=== PATIENT | female | born 1985 | race Two or more races ===

== ENCOUNTER 2019-02-19 00:31 | Emergency (ER) | payer OTHER ==
[~2019-02-19] VITALS: Ht 160 cm; Wt 158.8 kg
[~2019-02-19 00:31] MED LIST: NO HOME MEDICATIONS; SULF1TAB24 PO
[2019-02-19 00:35] VITALS: BP 147/89
[2019-02-19] MEDS ORDERED: HYDR-3164 PO (00:48)
[2019-02-19] MEDS ORDERED: KETOROLAC 30 MG/ML VIAL. IM ONE (01:00)
[2019-02-19] MEDS ORDERED: HYDROcodone/APAP 5/325MG 1 TAB TABLET PO ONE (01:00)
--- NOTE | 2019-02-19 02:07 | PHYS DOC ---
Past Medical History Past Medical History: No Pertinent History Past Surgical History: Appendectomy, Tubal ligation Alcohol Use: None Drug Use: None Adult General Chief Complaint Chief Complaint: BACK PAIN - NO INJURY HPI HPI Patient is a 33 year old female with back pain woke up this morning right side tried muscle relaxant only had a 2 mg dose and really help no other medicines no trauma no dysuria no cough no shortness of breath no chest pain just feeling this very tight muscle in the right mid back area last time she went to an emergency room for this was last year she went to [facility]. Patient has had no urinary incontinence no bowel incontinence symptoms are currently severe Review of Systems Review of Systems Constitutional: Denies fever or chills [] Eyes: Denies change in visual acuity, redness, or eye pain [] HENT: Denies nasal congestion or sore throat [] Respiratory: Denies cough or shortness of breath [] Musculoskeletal: Integument: Denies rash or skin lesions [] Neurologic: Denies headache, focal weakness or sensory changes [] Endocrine: Denies polyuria or polydipsia [] All other systems were reviewed and found to be within normal limits, except as documented in this note. Current Medications Current Medications Current Medications Medications (Trade) Dose Ordered Sig/Leandro Start Time Stop Time Status Last Admin Dose Admin Acetaminophen/ Hydrocodone Bitart (Lortab 5/325) 2 tab 1X ONCE 02/19/19 01:00 02/19/19 01:01 DC 02/19/19 00:57 2 TAB Ketorolac Tromethamine (Toradol 30mg Vial) 30 mg 1X ONCE 02/19/19 01:00 02/19/19 01:01 DC 02/19/19 00:57 30 MG Lorazepam (Ativan Inj) 2 mg 1X ONCE 02/19/19 01:00 02/19/19 01:01 DC 02/19/19 00:57 2 MG Allergies Allergies Allergies Coded Allergies Type Severity Reaction Last Updated Verified Penicillins Allergy Intermediate Rash 08/17/13 Yes Physical Exam Physical Exam Constitutional: Well developed, well nourished, no acute distress, non-toxic appearance. [] HENT: Normocephalic, atraumatic, bilateral external ears normal, oropharynx moist, no oral exudates, nose normal. [] Eyes: PERRLA, EOMI, conjunctiva normal, no discharge. [] Neck: Normal range of motion, no tenderness, supple, no stridor. [] Cardiovascular:Heart rate regular rhythm, no murmur [] Lungs & Thorax: Bilateral breath sounds clear to auscultation [] Abdomen: Bowel sounds normal, soft, no tenderness, no masses, no pulsatile masses. [] Skin: Warm, dry, no erythema, no rash. [] Back: There is tenderness to palpation paraspinous on the right reproduces her pain there is palpable spasm no focal midline tenderness. Extremities: No tenderness, no cyanosis, no clubbing, ROM intact, no edema. [] Neurologic: Alert and oriented X 3, normal motor function, normal sensory function, no focal deficits noted. [] Psychologic: Affect normal, judgement normal, mood normal. [] Current Patient Data Vital Signs Vital Signs Date Time Temp Pulse Resp B/P (MAP) Pulse Ox O2 Delivery O2 Flow Rate FiO2 02/19/19 00:57 18 02/19/19 00:35 97.6 88 147/89 (108) 98 Room Air 97.6 EKG EKG [] Radiology/Procedures Radiology/Procedures [] Course & Med Decision Making Course & Med Decision Making Pertinent Labs and Imaging studies reviewed. (See chart for details) []msk mid back pain palpable spasm pt feels better after toradol/ativan./norco Dragon Disclaimer Dragon Disclaimer This electronic medical record was generated, in whole or in part, using a voice recognition dictation system. Departure Departure Impression: Primary Impression: Back pain Disposition: 01 HOME, SELF-CARE Condition: STABLE Referrals: ALEXIS YOUNGBLOOD MD NO PCP (PCP) Patient Instructions: Back Pain, Adult, [id number] Scripts Hydrocodone/Apap 5-325 (NORCO 5-325 TABLET) 1 Each Tablet 1-2 EACH PO PRN Q6HRS PRN for PAIN, #10 as needed for pain Prov: KASI ALTAMIRANO MD 02/19/19 KAIS ALTAMIRANO MD Feb 19, 2019 02:07
== END 2019-02-19 01:20 | disposition home or self-care (01) ==
LOC: ER 00:31
DX: M54.6 Pain in thoracic spine (principal); Z90.89 Acquired absence of other organs; Z98.51 Tubal ligation status; Z88.0 Allergy status to penicillin
CPT/HCPCS: 96372; 99284; J1885; J2060

== ENCOUNTER 2019-04-30 09:17 | Emergency (ER) | payer OTHER ==
[~2019-04-30] VITALS: Ht 160 cm; Wt 125.2 kg
[~2019-04-30 09:17] MED LIST changes: +HYDR-3164 PO
[2019-04-30 09:28] VITALS: BP 129/88
[2019-04-30] MEDS ORDERED: CLIN150C14 PO (10:03)
[2019-04-30] MEDS ORDERED: NAPR-514 PO (10:03)
--- NOTE | 2019-04-30 10:03 | PHYS DOC ---
Past Medical History Past Medical History: No Pertinent History Past Surgical History: Appendectomy, Tubal ligation Alcohol Use: None Drug Use: None Adult General Chief Complaint Chief Complaint: FOOT INJURY PAIN HPI HPI Patient is a 34 year old female who presents to the emergency department with complaints of left foot redness, warmth, tenderness, and swelling for the last week. She denies any known injury. Currently she rates her pain 8 out of 10 on the pain scale, there are no alleviating, weightbearing and ambulation increases her pain. Patient states that she has been elevating the foot at home with no reduction of her swelling. ROS Patient denies any fever, cough, wheezing, shortness of breath, sore throat, or ear pain. She denies any nausea, vomiting, diarrhea, or abdominal pain. Patient denies any numbness, or tingling of the affected extremity. All other ROS is neg unless otherwise noted in HPI. Review of Systems Review of Systems See Above Allergies Allergies Allergies Coded Allergies Type Severity Reaction Last Updated Verified Penicillins Allergy Intermediate Rash 08/17/13 Yes sulfamethoxazole Allergy Intermediate Anxiety 04/30/19 Yes trimethoprim Allergy Intermediate Anxiety 04/30/19 Yes Physical Exam Physical Exam See Above Constitutional: Well developed, well nourished, no acute distress, non-toxic appearance, obese. [] HENT: Normocephalic, atraumatic, bilateral external ears normal, nose normal. [] Eyes: conjunctiva normal, no discharge. [] Neck: Normal range of motion, no stridor. [] Cardiovascular:Heart rate regular rhythm Lungs & Thorax: Respirations even and unlabored, no retractions, no respiratory distress Skin: Warm, dry; warmth, erythema, and 2+ edema noted to anterior portion of right foot, concerning for cellulitis. No bruising Extremities: No cyanosis, no clubbing, ROM intact Neurologic: Alert and oriented X 3, normal motor function, normal sensory function, no focal deficits noted. [] Psychologic: Affect normal, judgement normal, mood normal. [] Current Patient Data Vital Signs Vital Signs Date Time Temp Pulse Resp B/P (MAP) Pulse Ox O2 Delivery O2 Flow Rate FiO2 04/30/19 09:28 97.8 104 16 129/88 (102) 97 Room Air 97.8 EKG EKG [] Radiology/Procedures Radiology/Procedures [] Course & Med Decision Making Course & Med Decision Making Pertinent Labs and Imaging studies reviewed. (See chart for details) [] Shahrzad Disclaimer Dragon Disclaimer This electronic medical record was generated, in whole or in part, using a voice recognition dictation system. Departure Departure Impression: Primary Impression: Cellulitis of left foot excluding toes Disposition: 01 HOME, SELF-CARE Condition: STABLE Referrals: NO PCP (PCP) Patient Instructions: Cellulitis, [id number] Additional Instructions: Fill prescriptions and use it as directed. Recommend application of warm moist heat as needed for comfort. Recommend elevation of your left foot while you are resting. Follow-up with your primary care doctor in 2 days if symptoms persist, return to the ER if symptoms worsen. Take a probiotic or eat a yogurt daily while taking Clindamycin. Scripts Naproxen (NAPROXEN) 500 Mg Tablet 1 TAB PO BID for 10 Days, #20 TAB 0 Refills Prov: CAITLIN CLEMONS APRN 04/30/19 Clindamycin Hcl (CLINDAMYCIN HCL) 150 Mg Capsule 450 MG PO TID for 7 Days, #63 CAP 0 Refills Prov: ACITLIN CLEMONS COMMUNITY EDUCATOR 04/30/19 CAITLIN CLEMONS APRN Apr 30, 2019 10:03
== END 2019-04-30 10:22 | disposition home or self-care (01) ==
LOC: ER 09:17
DX: L03.116 Cellulitis of left lower limb (principal); Z90.89 Acquired absence of other organs; Z88.0 Allergy status to penicillin; Z98.51 Tubal ligation status; Z88.2 Allergy status to sulfonamides; Z88.1 Allergy status to other antibiotic agents
CPT/HCPCS: 99283

== ENCOUNTER 2019-09-22 01:33 | Emergency (ER) | payer OTHER ==
[~2019-09-22] VITALS: Ht 157.5 cm; Wt 123.8 kg
[~2019-09-22 01:33] MED LIST changes: +CLIN150C14 PO; +NAPR-514 PO
[2019-09-22 02:13] VITALS: BP 147/81
[2019-09-22] MEDS ORDERED: CYCL10TA2 PO (02:57)
[2019-09-22] MEDS ORDERED: CYCLOBENZAPRINE 10 MG TABLET. PO ONE (03:15)
[2019-09-22] MEDS ORDERED: ACETAMINOPHEN 500 MG TABLET PO ONE (03:15)
--- NOTE | 2019-09-22 03:44 | PHYS DOC ---
Past Medical History Past Medical History: Bronchitis, Other Additional Past Medical Histor: CHRONIC BACK PAIN Past Surgical History: Appendectomy, Tubal ligation Alcohol Use: None Drug Use: None Adult General Chief Complaint Chief Complaint: BACK PAIN - NO INJURY HPI HPI Patient is a 34 year old female with history of chronic bronchitis who presents with left sided back pain and chest wall pain worse with coughing. Symptom onset was 2 days ago. It is described as sharp rated as moderate worse with position change and movement. Patient is taken ibuprofen with limited relief. Denies increased shortness breath fever chills, productive cough. No other acute symptoms or complaints. Patient does not currently have a primary care provider and has not been evaluated for her symptoms prior to today's visit.[] Review of Systems Review of Systems Review of systems as per history of present illness. All other review symptoms are negative All other systems were reviewed and found to be within normal limits, except as documented in this note. Current Medications Current Medications Current Medications Medications (Trade) Dose Ordered Sig/Leandro Start Time Stop Time Status Last Admin Dose Admin Acetaminophen (Tylenol) 1,000 mg 1X ONCE 09/22/19 03:15 09/22/19 03:16 DC Cyclobenzaprine HCl (Flexeril) 10 mg 1X ONCE 09/22/19 03:15 09/22/19 03:16 DC Allergies Allergies Allergies Coded Allergies Type Severity Reaction Last Updated Verified Penicillins Allergy Intermediate Rash 08/17/13 Yes sulfamethoxazole Allergy Intermediate Anxiety 04/30/19 Yes trimethoprim Allergy Intermediate Anxiety 04/30/19 Yes Physical Exam Physical Exam Constitutional: Well developed, well nourished, no acute distress, non-toxic appearance. [] HENT: Normocephalic, atraumatic, bilateral external ears normal, oropharynx moist, sporadic occasional loose cough . [] Eyes: PERRLA, EOMI, conjunctiva normal, no discharge. [] Neck: Normal range of motion, no tenderness, supple, no stridor. [] Cardiovascular:Heart rate regular rhythm, no murmur [] Lungs & Thorax: Bilateral breath sounds clear to auscultation [] Abdomen: Bowel sounds normal, soft, no tenderness[] Skin: Warm, dry, no erythema, no rash. [] Back: No midline or CVA tenderness, thoracic paravertebral tenderness with exam.. [] Extremities: No tenderness, no edema. [] Neurologic: Alert and oriented X 3, normal motor function, normal sensory function, no focal deficits noted. [] Psychologic: Affect normal, judgement normal, mood normal. [] Current Patient Data Vital Signs Vital Signs Date Time Temp Pulse Resp B/P (MAP) Pulse Ox O2 Delivery O2 Flow Rate FiO2 09/22/19 02:13 97.8 91 18 147/81 (103) 97 Room Air 97.8 EKG EKG [] Radiology/Procedures Radiology/Procedures [] Course & Med Decision Making Course & Med Decision Making Pertinent Labs and Imaging studies reviewed. (See chart for details) [Reproducible mechanical back pain. Recommend supportive care with PCP follow- up.] Dragon Disclaimer Dragon Disclaimer This electronic medical record was generated, in whole or in part, using a voice recognition dictation system. Departure Departure Impression: Primary Impression: Back pain Disposition: HOME, SELF-CARE Condition: STABLE Referrals: NO PCP (PCP) Patient Instructions: Back Pain, Adult, [id number] Additional Instructions: Take ibuprofen for pain and Flexeril as needed for additional relief. Follow-up with your local primary care physician for reevaluation. Scripts Cyclobenzaprine Hcl (CYCLOBENZAPRINE HCL) 10 Mg Tablet 1 TAB PO TID, #15 TAB Prov: MITALI HENNING DO 09/22/19 MITALI HENNING DO Sep 22, 2019 03:44
== END 2019-09-22 03:43 | disposition home or self-care (01) ==
LOC: ER 01:33
DX: M54.6 Pain in thoracic spine (principal); R07.89 Other chest pain; R05 Cough; G89.29 Other chronic pain; Z90.89 Acquired absence of other organs; Z98.51 Tubal ligation status; Z88.0 Allergy status to penicillin; Z88.1 Allergy status to other antibiotic agents; Z88.2 Allergy status to sulfonamides
CPT/HCPCS: 99283